=== PATIENT | male | born 1960 | race Caucasian/White ===

== ENCOUNTER 2021-04-24 13:44 | Inpatient (IN) | payer MEDICAID ==
[~2021-04-24] VITALS: Ht 182.9 cm; Wt 98.4 kg
--- NOTE | 2021-04-24 13:47 | NUR ---
BIB ra c/o sob with wheezing since this morning. Respiration regular and unlabored. The patient is alert and oriented x4. Denies pain. Will continue to monitor the patient.
--- NOTE | 2021-04-24 14:02 | NUR ---
OXYGEN SATURATION IN ROOM AIR IS AT 92%. THE PATIENT IS PLACED ON OXYGEN AT 2L/MIN VIA NASAL CANNULA.
[2021-04-24 14:15] LABS: BASOPHILS # (AUTO) 0.1 K/uL (0.0-0.2); BASOPHILS % (AUTO) 0.8 % (0.0-2.0); EOSINOPHILS % (AUTO) 5.7 % (0.0-6.0); HEMATOCRIT 46 % (39-51); HEMOGLOBIN 15.6 g/dL (13.5-17.5); LYMPHOCYTES # (AUTO) 2.7 K/uL (0.8-4.8); LYMPHOCYTES % (AUTO) 32.9 % (20.0-44.0); MEAN CORPUSCULAR HGB CONC 34 g/dl (31.0-36.0); MEAN CORPUSCULAR VOLUME 87 fL (80-96); MONOCYTES # (AUTO) 0.6 K/uL (0.1-1.30); MONOCYTES % (AUTO) 7.2 % (2.0-12.0); NEUTROPHILS # (AUTO) 4.4 K/uL (1.8-8.9); NEUTROPHILS % (AUTO) 53.4 % (43.0-81.0); PLATELET COUNT (AUTO) 174 K/uL (150-450); RED BLOOD CELL COUNT(AUTO) 5.31 MIL/uL (4.5-6.0); WHITE BLOOD COUNT (AUTO) 8.3 K/uL (4.3-11.0)
[2021-04-24] MEDS ORDERED: ALBUTEROL FS 2.5 MG/3 ML VIAL.NEB ONE ×2 (14:22→16:15)
[2021-04-24] MEDS ORDERED: IPRATROPIUM NEB FS 0.5 MG/2.5 ML AMPUL.NEB ONE (14:22)
[2021-04-24 14:26] LABS: CALCIUM, SERUM 8.4 mg/dL (8.5-10.1); CARBON DIOXIDE 22 mmol/L (21-32); CHLORIDE 107 mmol/L (98-107); CREATININE 1.6 mg/dL (0.6-1.3); GLUCOSE 182 mg/dL (74-106); POTASSIUM 3.6 mmol/L (3.5-5.1); SODIUM SERUM 140 mmol/L (136-145); UREA NITROGEN, BLOOD 18 mg/dL (7-18)
[2021-04-24] MEDS ORDERED: IPRATROPIUM NEB FS 0.5 MG/2.5 ML AMPUL.NEB NEB ONE (14:30)
[2021-04-24] MEDS ORDERED: IV NS 0.9% 1,000 ML BAG IV ONE (14:30)
[2021-04-24] MEDS ORDERED: ALBUTEROL FS 2.5 MG/3 ML VIAL.NEB CONTNEB ONE ×2 (14:30→16:00)
[2021-04-24] MEDS ORDERED: methylPREDNISolone SOD SUCC 125 MG/2ML VIAL IV ONE (14:30)
[2021-04-24] MEDS ORDERED: methylPREDNISolone SOD SUCC 125 MG/2ML VIAL ONE (14:33)
--- NOTE | 2021-04-24 14:39 | NUR ---
X-RAY TECH AT THE BEDSIDE
[2021-04-24] MEDS ORDERED: Magnesium 1GM/D5W 100ML PREMIX 200 ML IV ONE ×2 (16:00→16:14)
[2021-04-24] MEDS ORDERED: Z GUARD REMEDY 2 OZ OINT TP PRN (17:30)
[2021-04-24] MEDS ORDERED: IPRATROPIUM NEB FS 0.5 MG/2.5 ML AMPUL.NEB NEB PRN (17:30)
[2021-04-24] MEDS ORDERED: ACETAMINOPHEN 325 MG TABLET PO PRN (17:30)
[2021-04-24] MEDS ORDERED: ALBUTEROL FS 2.5 MG/0.5 ML VIAL.NEB NEB PRN (17:30)
[2021-04-24] MEDS ORDERED: MAGNESIUM HYDROXIDE 30 ML UDC PO PRN (17:30)
[2021-04-24] MEDS ORDERED: ONDANSETRON HCL/PF 4 MG/2 ML VIAL IVP PRN (17:30)
[2021-04-24] MEDS ORDERED: MAG HYDROX/AL HYDROX/SIMETH 30 ML UDC PO PRN (17:30)
[2021-04-24] MEDS ORDERED: HYDROCODONE/APAP 10/325MG TABLET PO PRN (17:30)
[2021-04-24] MEDS ORDERED: HYDROCODONE/APAP 5/325MG TABLET PO PRN (17:30)
[2021-04-24] MEDS ORDERED: ALPRAZOLAM 0.5 MG TABLET PO PRN (17:30)
--- NOTE | 2021-04-24 18:01 | NUR ---
ROOM [facility]
--- NOTE | 2021-04-24 18:22 | NUR ---
Report given to Ahmet AGUILA for continuity of care
--- NOTE | 2021-04-24 18:30 | NUR ---
RN NOTE- 60 Y/O MALE ADMITTED TO UNIT TELE PT . PT AT HOME AND BECAME INCREASINGLY SOB AND HAD WHEEZING. PT WENT TO LAY DOWN AND FAINTED. CALLED 911. PT IS UNVACCINATED BY CHOICE. VS- BP- 133/77, HR- SINUS TACH AT 100/M , RR-20, T- 97.3 AND 02 SATS 96% 2LPM VIA NC. HEP LOCK RT ARM. MADE COMFORTABLE, AT BEDSIDE. SIDE RAILS X2, BED LOCKED. CALL LIGHT IN REACH. PASS ON TO NOC SHIFT
--- NOTE | 2021-04-24 19:10 | NUR ---
RN NOTE RECEIVED PT AWAKE IN BED, A/OX4. WITH AT BEDSIDE. PT DENIES ANY PAIN/DISCOMFORT AT THIS TIME. ON O2 @2LPM VIA NC. DENIES SOB. NO WHEEZING NOTED. IV SITE: R-AC INTACT/PATENT AND FLUSHES WELL. PT AMBULATORY/BRP. REINFORCED SAFETY TEACHINGS/FALL PREVENTION MEASURES, TO USE CALL LIGHT FOR ANY ASSISTANCE. PT VERBALIZED UNDERSTANDING. SAFETY MEASURES IN PLACE, BED IN LOWEST LOCKED POSITION, S/R UPX2, CALL LIGHT WITHIN REACH. WILL CONT TO MONITOR. Addendum: 04/24/21 at 2220 by FARIDEH PUENTE RN IV SITE: Ne[facility]-JIMENE[facility]
[2021-04-24 20:00] VITALS: BP 120/73
[2021-04-24 20:30] VITALS: BP 120/73
[2021-04-24] MEDS: methylPREDNISolone SOD SUCC 40 MG/ML VIAL IV SCH (20:44)
[2021-04-24] MEDS: IV NS 0.9% 1,000 ML IV PRN (20:44)
--- NOTE | 2021-04-24 21:29 | NUR ---
RN NOTE PT REQUESTS OFF O2 AT THIS TIME. DENIES SOB. RESPIRATIONS EVEN/UNLABORED. O2 SAT 97-98% ON ROOM AIR.
[2021-04-25] VITALS: BP 123/58
--- NOTE | 2021-04-25 02:30 | NUR ---
RN NOTE PT WOKE UP, WENT TO BR TO VOID, AND BRUSHED TEETH, THEN BACK TO BED. PT CONT ON ROOM AIR, DOESN'T LIKE TO USE O2. NO SOB/NO RESPIRATORY DISTRESS NOTED. O2 SAT 94-96%. PT STABLE.
[2021-04-25 04:00] VITALS: BP 142/73
[2021-04-25] MEDS: methylPREDNISolone SOD SUCC 40 MG/ML VIAL IV SCH ×3 (04:34→20:56)
[2021-04-25 06:56] LABS: BASOPHILS % (AUTO) 0.1 % (0.0-2.0); HEMATOCRIT 44 % (39-51); HEMOGLOBIN 14.6 g/dL (13.5-17.5); LYMPHOCYTES # (AUTO) 0.9 K/uL (0.8-4.8); LYMPHOCYTES % (AUTO) 6.4 % (20.0-44.0); MEAN CORPUSCULAR HGB CONC 33 g/dl (31.0-36.0); MEAN CORPUSCULAR VOLUME 88 fL (80-96); MONOCYTES # (AUTO) 0.4 K/uL (0.1-1.30); MONOCYTES % (AUTO) 2.5 % (2.0-12.0); NEUTROPHILS # (AUTO) 13.3 K/uL (1.8-8.9); PLATELET COUNT (AUTO) 190 K/uL (150-450); RED BLOOD CELL COUNT(AUTO) 5.02 MIL/uL (4.5-6.0); WHITE BLOOD COUNT (AUTO) 14.6 K/uL (4.3-11.0)
--- NOTE | 2021-04-25 06:58 | NUR ---
TELE/RN CLOSING NOTE PT RESTING IN BED, DENIES ANY PAIN AT THIS TIME. DENIES SOB. SLEPT WELL DURING THE NIGHT. CONT'D ON ROOM AIR, WITH O2 SAT 94-96%. TELE MONITOR READING SR, HR 82. NO ACUTE DISTRESS. SAFETY MEASURES MAINTAINED. ALL NEEDS ATTENDED TO.
[2021-04-25 07:21] LABS: CALCIUM, SERUM 8.5 mg/dL (8.5-10.1); CREATININE 1.1 mg/dL (0.6-1.3); MAGNESIUM 2.2 mg/dL (1.8-2.4); POTASSIUM 4.4 mmol/L (3.5-5.1)
--- NOTE | 2021-04-25 07:30 | NUR ---
RECEIVED PT. IN AM ALERT AND ORIENTED X4.IV INFUSING,NO ACUTE DISTRESS.VS STABLE.
[2021-04-25 07:38] LABS: THYROID STIMULATING HORMONE 0.46 uIU/mL (0.358-3.74)
[2021-04-25 08:00] VITALS: BP 136/70
[2021-04-25] MEDS: PANTOPRAZOLE 40 MG TABLET.DR PO SCH (09:31)
--- NOTE | 2021-04-25 10:00 | NUR ---
IN TO VISIT.
[2021-04-25] MEDS: IV NS 0.9% 1,000 ML IV PRN (11:22)
[2021-04-25 16:00] VITALS: BP 131/79
--- NOTE | 2021-04-25 18:30 | NUR ---
NO CHANGE IN STATUS.
--- NOTE | 2021-04-25 19:15 | NUR ---
FILLING WINDER NOTES SR-91 ON TELE MONITOR,ON BED,SITTING UP WATCHING TV PROGRAM,BREATHING REGULAR,NOT IN ANY FORM OF DISTRESS.C/O HEADACHE,WILL MEDICATE.IVF NS AT 75ML/HR RATE INFUSING WELL ON RIGHT FOREARM SALINE LOCK VIA IV PUMP,SITE PATENT.CONVERSANT,AMBULATORY,ECHO 65-70% EF.CALL LIGHT IN REACH,NEEDS ANTICIPATED.
--- NOTE | 2021-04-25 19:34 | NUR ---
INSPECTOR AND CLERK NOTES C/O HEADACHE,TYLENOL 650MG PO GIVEN ORDERED,AND PER PATIENT REQUEST.
[2021-04-25 20:00] VITALS: BP 136/77
--- NOTE | 2021-04-25 20:59 | NUR ---
APPLICATION TESTER NOTES C/O INSOMNIA,XANAX 1MG PO GIVEN PER PATIENT FOR SLEEP.
--- NOTE | 2021-04-25 23:20 | NUR ---
CUSTOMER RETENTION REPRESENTATIVE NOTES SOUND ASLEEP,VITAL SIGNS HELD.ON XANAX
[2021-04-26] MEDS: methylPREDNISolone SOD SUCC 40 MG/ML VIAL IV SCH (04:59)
[2021-04-26 05:00] VITALS: BP 125/75
--- NOTE | 2021-04-26 06:32 | NUR ---
MUSHROOM PICKER NOTES SLEPT 7 HOURS AT NIGHT WITH XANAX 1MG PO.AMBULATE WITH STEADY GAIT.NO EPISODE OF SOB NOTED,O2 IN USED TO KEEP O2 SAT ABOVE 90%,100% THIS MORNING,POSSIBLE D/C TO HOME WHEN MEDICALLY CLEARED.
[2021-04-26 07:08] LABS: BASOPHILS % (AUTO) 0.1 % (0.0-2.0); HEMATOCRIT 43 % (39-51); HEMOGLOBIN 14.2 g/dL (13.5-17.5); LYMPHOCYTES # (AUTO) 1.4 K/uL (0.8-4.8); LYMPHOCYTES % (AUTO) 6.7 % (20.0-44.0); MEAN CORPUSCULAR HGB CONC 33 g/dl (31.0-36.0); MEAN CORPUSCULAR VOLUME 88 fL (80-96); MONOCYTES # (AUTO) 0.8 K/uL (0.1-1.30); NEUTROPHILS # (AUTO) 18.6 K/uL (1.8-8.9); NEUTROPHILS % (AUTO) 89.2 % (43.0-81.0); PLATELET COUNT (AUTO) 191 K/uL (150-450); RED BLOOD CELL COUNT(AUTO) 4.93 MIL/uL (4.5-6.0); WHITE BLOOD COUNT (AUTO) 20.9 K/uL (4.3-11.0)
[2021-04-26 07:09] LABS: CALCIUM, SERUM 8.8 mg/dL (8.5-10.1); POTASSIUM 4.4 mmol/L (3.5-5.1)
--- NOTE | 2021-04-26 07:40 | NUR ---
RN OPENING NOTE- RECEIVED PT AWAKE IN BED, A/OX4. PT DENIES ANY PAIN/DISCOMFORT AT THIS TIME. ON O2 @2LPM VIA NC. DENIES SOB. NO WHEEZING NOTED. IV SITE: R-AC INTACT/PATENT AND FLUSHES WELL. PT AMBULATORY/BRP. REINFORCED SAFETY TEACHINGS/FALL PREVENTION MEASURES, BED IN LOWEST LOCKED POSITION, S/R UPX2, CALL LIGHT WITHIN REACH. WILL CONT TO MONITOR.
[2021-04-26 08:00] VITALS: BP 131/73
[2021-04-26] MEDS: PANTOPRAZOLE 40 MG TABLET.DR PO SCH (08:12)
[2021-04-26] MEDS ORDERED: FLUTICASONE/VILANTEROL 1 EACH BLST.W.DEV IH SCH (10:30)
[2021-04-26] MEDS ORDERED: FLUT1BLS IH (13:03)
[2021-04-26] MEDS ORDERED: METH4TAB3 PO (13:03)
--- NOTE | 2021-04-26 13:37 | NUR ---
ACCOUNTANT CONTROLLER NOTE- PT DC HOME INTO CARE OF AND FAMILY. DR BARRIENTOS SAW PT AND SAFETY ADMINISTRATOR GLORIA BUCIO DC PT AT THIS TIME. PT VS STABLE, O2 SATS AT 95% RA. ALERT ORIENTED X 4. REVIEWED AFTERCARE AND DC INSTRUCTIONS W PT AND . VERBALIZED UNDERSTANDING. ID [id number] REMOVED. VALUABLES COLLECTED . ESCORTED OFF UNIT BY THIS RN.
== END 2021-04-26 13:40 | disposition home or self-care (01) | DRG 48 ==
LOC: ER 13:49 → TELE 18:13 → MED 04-26 10:38
PROVIDERS: ADMIT Nurse Practitioner Acute Care; ATTEND Nurse Practitioner Acute Care
DX: G90.8 Other disorders of autonomic nervous system (principal); N17.0 Acute kidney failure with tubular necrosis; J45.901 Unspecified asthma with (acute) exacerbation; K21.9 Gastro-esophageal reflux disease without esophagitis; Z20.822 Contact with and (suspected) exposure to COVID-19; G47.33 Obstructive sleep apnea (adult) (pediatric); E66.9 Obesity, unspecified; Z68.29 Body mass index [BMI] 29.0-29.9, adult; Z87.09 Personal history of other diseases of the respiratory system
CPT/HCPCS: 36415; 71045-TC; 80048-TC; 80061-TC; 83735-TC; 83880; 84100-TC; 84443-TC; 84484-TC; 85025-TC; 85378-TC; 87081-TC; 93307-TC; C9803; G0378; J2920; J2930; J3475; J7030